=== PATIENT | female | born 2000 | race Hispanic/Latino ===

== ENCOUNTER 2025-01-08 09:08 | Day surgery (SDC) | payer OTHER ==
[2025-01-08 09:28] VITALS: BMI 37.3
[2025-01-08 10:20] LABS: Glucose, Urine (Dipstick) Normal (Negative); Leukocyte 500 (Negative); Protein, Urine (Dipstick) 15 mg/dl (Neg-Trace); Specific Gravity, Urine 1.010 (1.005-1.030)
[2025-01-08 10:37] LABS: Bacteria/HPF 4+ HPF (None Seen); CAUTI Indications for Culture Pregnancy; RBC/HPF None Seen HPF (0-3); Yeast-Hyphae 1+ HPF (None Seen)
[2025-01-08 10:38] LABS: Urine Culture Reflex Yes Yes
[2025-01-08] MEDS ORDERED: hydrALAZINE 20 MG/ML VIAL SLOW IVP PRN (10:42)
[2025-01-08] MEDS: Cephalexin 500 MG CAP PO SCH (11:41)
== END 2025-01-08 11:44 | disposition home or self-care (01) ==
LOC: CSHLD/OP 09:08
PROVIDERS: ATTEND Family Medicine
DX: O47.9 False labor, unspecified (principal); O23.40 Unspecified infection of urinary tract in pregnancy, unspecified trimester; N39.0 Urinary tract infection, site not specified
CPT/HCPCS: 81001; 87086

== ENCOUNTER 2025-02-03 07:30 | Inpatient (IN) | payer OTHER ==
[2025-02-02 11:06] LABS: Hemoglobin 11.3 g/dL (12.0-15.5)
[2025-02-02 11:07] LABS: Hematocrit 33.3 % (34.9-44.5); Platelet Count 221 10x3/uL (150-450)
[2025-02-02 11:33] LABS: Hep B Surf Ag Non-Reactive S/CO (NonReactive)
[2025-02-02 11:35] LABS: Syphilis Antibody Index 0.05 S/CO (<1.00 Non-Reactive)
[2025-02-03 10:58] VITALS: BMI 37.8
[2025-02-03] MEDS ORDERED: Bicitra 30 ML UDCUP PO PRN (11:16)
[2025-02-03] MEDS ORDERED: hydrALAZINE 20 MG/ML VIAL SLOW IVP PRN ×2 (11:16→13:20)
[2025-02-03] MEDS ORDERED: Ondansetron PF 4 MG/2 ML Vial IVP PRN ×3 (11:16→13:28)
[2025-02-03] MEDS ORDERED: Diphenoxylate HCl/Atropine Tablet PO PRN ×2 (11:16)
[2025-02-03] MEDS ORDERED: Methylergonovine 0.2 MG/ML VIAL IM PRN (11:16)
[2025-02-03] MEDS ORDERED: Acetaminophen 500 MG TAB PO PRN (11:16)
[2025-02-03] MEDS ORDERED: Carboprost 250 MCG/ML AMP IM PRN (11:16)
[2025-02-03] MEDS ORDERED: Oxytocin 30 units/NS 500 ML 500 ML IV SCH (11:30)
[2025-02-03] MEDS: Famotidine/PF 20 mg/2ml Vial SLOW IVP PRN (11:50)
[2025-02-03] MEDS ORDERED: Acetaminophen 325 MG TAB PO PRN (13:20)
[2025-02-03] MEDS ORDERED: Lanolin Ointment 7 GM TUBE TOP PRN (13:20)
[2025-02-03] MEDS ORDERED: diphenhydrAMINE 50 MG/ML VIAL IVP PRN (13:28)
[2025-02-03] MEDS ORDERED: Meperidine HCl/PF 25 MG (1 mL) VIAL SLOW IVP PRN (13:28)
[2025-02-03] MEDS ORDERED: Communication Order-Pharmacy FS SCH (13:30)
[2025-02-03] MEDS ORDERED: Boostrix 0.5 ML (Tdap) VIAL (>/=7 yrs of age) IM ONE (15:00)
[2025-02-03] MEDS: Ketorolac Tromethamine 30 MG (1 mL) VIAL IVP SCH (15:04)
[2025-02-03] MEDS: HYDROmorphone 0.5 MG/0.5 ML SYRINGE SLOW IVP PRN (16:39)
[2025-02-03] MEDS: Ketorolac Tromethamine 30 MG (1 mL) VIAL IVP PRN (21:49)
[2025-02-04] MEDS ORDERED: HYDROcodone/Acetaminophen 5/325 mg Tablet PO PRN (01:30)
[2025-02-04 04:07] LABS: Hematocrit 29.6 % (34.9-44.5); Hemoglobin 9.8 g/dL (12.0-15.5); Mean Corpuscular Hemoglobin 29.7 pg (27.0-33.0); Mean Corpuscular Volume 89.7 fL (81.6-98.3); Platelet Count 191 10x3/uL (150-450); Red Blood Cell (RBC) Count 3.30 10x6/uL (3.90-5.03); White Blood Cell (WBC) Count 8.58 10x3/uL (3.5-10.5)
[2025-02-04] MEDS: Ondansetron PF 4 MG/2 ML Vial ONE ×2 (04:36→04:37)
[2025-02-04] MEDS: Erythromycin Base 0.5% Oint 1 GM TUBE ONE (04:37)
[2025-02-04] MEDS: PHENYLEPHRINE-NS 100 MCG/ML 10 ML SYRINGE ONE (04:37)
[2025-02-04] MEDS: Oxytocin 10 UNITS/ML VIAL ONE ×3 (04:37→04:38)
[2025-02-04] MEDS: Tranexamic Acid 1,000 MG/10 ML VIAL ONE (04:38)
[2025-02-04] MEDS: Ferrous Sulfate 325 MG TAB PO SCH (04:39)
[2025-02-04] MEDS: Hepatitis B Vaccine 10 MCG/0.5 ML SYR ONE (08:07)
[2025-02-04] MEDS: HYDROcodone/Acetaminophen 5/325 mg Tablet PO PRN (08:11)
[2025-02-04] MEDS: Simethicone Chewable 80 MG TAB PO PRN (08:12)
[2025-02-04] MEDS: Ibuprofen 800 MG TAB PO SCH (13:02)
[2025-02-05 08:53] VITALS: BP 124/74; TEMP 97.7
== END 2025-02-05 16:15 | disposition home or self-care (01) | DRG 788 ==
LOC: CSHLD 10:21 → CSHPP 20:00
PROVIDERS: ADMIT Family Medicine; ATTEND Family Medicine
PROC: 10D00Z1 Extraction of Products of Conception, Low, Open Approach (ICD-10-PCS; principal; 2025-02-03)
DX: O34.211 Maternal care for low transverse scar from previous cesarean delivery (principal); Z37.0 Single live birth; Z3A.39 39 weeks gestation of pregnancy; O99.214 Obesity complicating childbirth; O43.113 Circumvallate placenta, third trimester; O99.02 Anemia complicating childbirth; Z3A.00 Weeks of gestation of pregnancy not specified; Z79.899 Other long term (current) drug therapy
CPT/HCPCS: 36415; 51702; 85014; 85018; 85027; 85049; 86780; 86850; 86900; 86901; 87340; J1171; J1308; J1885; J2274; J2310; J2405; J2590; J7120

== ENCOUNTER 2025-02-08 16:22 | Emergency (ER) | payer OTHER ==
[2025-02-08 17:10] LABS: Glucose, Urine (Dipstick) Normal (Negative); Leukocyte 25 (Negative); Protein, Urine (Dipstick) Negative (Neg-Trace); Specific Gravity, Urine 1.005 (1.005-1.030)
[2025-02-08 17:30] LABS: RBC/HPF 0-3 HPF (0-3)
[2025-02-08 17:31] LABS: Bacteria/HPF Rare-Few HPF (None Seen); CAUTI Indications for Culture Pelvic or flank pain; Urine Culture Reflex No No; WBC/HPF 0-3 HPF (0-3)
== END 2025-02-08 18:09 | disposition home or self-care (01) ==
LOC: CSHERS 16:22
DX: R60.0 Localized edema (principal)
CPT/HCPCS: 81001; 93970